=== PATIENT | female | born 1945 | race Caucasian/White ===

== ENCOUNTER → 2025-08-24 14:21 | Outpatient (REF) | payer MEDICARE, SELFPAY | LOC: RAD 14:21 | PROVIDERS: ATTENDING PHYSICIAN Internal Medicine; FAMILY PHYSICIAN Family Medicine | DX: I48.0 Paroxysmal atrial fibrillation (principal) | CPT/HCPCS: 75572; Q9967 ==

== ENCOUNTER → 2025-10-25 11:37 | Outpatient (REF) | payer MEDICARE, OTHER, SELFPAY ==
[2025-10-25 13:19] LABS: Hematocrit 36.2 % (37.0-47.0); Hemoglobin 12.4 g/dL (12.0-16.0); Mean Corp Hgb Conc. 34.3 g/dL (33.0-37.0); Mean Corpuscular Volume 96.8 fL (81.0-99.0); Nucleated Red Blood Cells % 0 %; Platelet Count 308 10^3/uL (130-400); Red Cell Dist. Width 12.0 % (11.5-14.5)
[2025-10-25 13:31] LABS: INR 1.31; PT 16.4 Sec (11.4-14.6)
[2025-10-25 13:48] LABS: ALT (SGPT) 17 U/L (0-35); AST (SGOT) 23 U/L (14-36); Albumin 4.8 g/dl (3.5-5.0); Alkaline Phosphatase 90 U/L (38-126); Blood Urea Nitrogen 12 mg/dl (7-17); Calcium 9.3 mg/dl (8.4-10.2); Carbon Dioxide 27 mmol/L (22-30); Chloride 103 mmol/L (98-107); Glucose 99 mg/dl (70-99); Potassium 4.6 mmol/L (3.5-5.1); Sodium 136 mmol/L (135-145); Total Protein 8.1 g/dl (6.3-8.2); eGFR > 60.00
== END ==
LOC: SDSPAT 11:37
PROVIDERS: ATTENDING PHYSICIAN Internal Medicine Interventional Cardiology; FAMILY PHYSICIAN Family Medicine
DX: I48.0 Paroxysmal atrial fibrillation (principal)
CPT/HCPCS: 36415; 80053; 85025; 85610; 86850; 86900; 86901; 87070; 93005

== ENCOUNTER 2025-11-02 06:00 | Inpatient (IN) | payer MEDICARE, OTHER, SELFPAY ==
[2025-10-25 12:43] VITALS: BMI 26.3
[2025-11-02] VITALS (14 sets, daily range): BP systolic 113–158; BP diastolic 47–75; BMI 26.0
--- NOTE | 2025-11-02 08:57 | ITS.CL.PN ---
Planning Director - Procedure Note
Procedure
Procedure Note:
Watchman implantation report
Date: November 02, 2025
Indication: Elevated bleeding and stroke risk in the setting of atrial fibrillation
Procedure report:
Watchman device implant: López
Groin access, transseptal puncture and delineation of JOSE ANTONIO anatomy: Talamantes
After informed consent and patient safety timeout the patient was sedated under general anesthesia by the anesthesiology service. HEMANTH probe was placed demonstrating no left atrial appendage thrombus and trace pericardial effusion preprocedure and
post procedure. Under direct ultrasound guidance the right femoral vein was accessed with 1 8 [place] short sheath which was upgraded over a pigtail wire to the double curve watchman sheath. The watchman sheath was brought to the SVC/RA junction
and withdrawn more inferiorly with an inferior to mid and anterior access point on the interatrial fossa guided by HEMANTH. Utilizing the RF wire the watchman sheath was brought to the left atrium under HEMANTH guidance.
The pigtail wire was exchanged for a pigtail catheter which engaged the appendage distally and venogram demonstrating a 22 mm ostium with a small frond-like distal lobes. The most distal lobe was engaged with anterior tilt and Dr. Dawn delivered a
27 mm device with a 23 to 26% compression which met Pass criteria with an ostial location, tug test without change in device, compression as noted and venogram demonstrating occlusion. We are all in agreement that the device may criteria and the
device was deployed and sheath and catheters were withdrawn to the right atrium. Heparin was given for the duration of the procedure to achieve an ACT greater than 350 seconds. Iblbgq-iz-vlski suture to the right groin and the patient tolerated
the procedure well.
Impression: 27 mm Watchman as above
Recommendations: Oral anticoagulation as per Dr. Dawn's notes
[2025-11-02 09:43] LABS: ACT-LR - POC > 397 Seconds (116-155)
--- NOTE | 2025-11-02 09:59 | PTCARENOTE ---
Received patient from PACU after watchman placement. Right groin dressing is dry and intact with palpable pedal pulse. SB/SR on telemetry, monitoring VS per protocol. Oriented to the room and plan of care, call westbrook in reach, at the bedside.
--- NOTE | 2025-11-02 10:50 | WATCHMAN.MD ---
Watchman Implant
-
ELECTROPHYSIOLOGY/INTERVENTIONAL PROCEDURE REPORT
Date of Procedure: November 02, 2025
Referring: Dr. Za Murray
Assisting Physician: Fermin Talamantes
PROCEDURES:
1. Left atrial appendage occlusion device using 27 mm WATCHMAN FLX device
2. Ultrasound-guided right common femoral venous access
INDICATION: High [id number] warranting snf full anticoagulation but inability to do this given his bleeding risk/bleeding complication.
ACCESS: Right common femoral vein, 16Fr sheath and 9Fr. sheaths, under US guidance using micropunture kit.
Ultrasound was utilized for vascular access. The right femoral vein was visualized under ultrasound, and the vessels was patent. An image was stored permanently in the patient's medical record. Under direct ultrasound guidance, an 8 [place] Islander
sheaths was inserted into the right common femoral vein, using a micropuncture kit through a modified Seldinger technique.
HEMODYNAMICS : (mmHg)
LA Pressure: 12
PROCEDURE REPORT:
After informed consent and patient safety 'Timeout' the patient was intubated and sedated by the anesthesiology service. Under ultrasound guidance, the right femoral vein was accessed by Dr. Talamantes for transseptal puncture. Concomitant
transesophageal echocardiogram was performed by Dr. Saleem Shafer
Baseline intracardiac ultrasound demonstrated no pericardial effusion and baseline HEMANTH images revealed a trace pericardial effusion.
After ruling out a left atrial appendage thrombus, the patient was heparinized for an ACT between 350-400 seconds and under HEMANTH and intracardiac ultrasound guidance transseptal puncture was performed by Dr. Rama Dawn using the Bookmate VersaCross
trans-septal system in a mid position on the inferior-superior axis and a mid position on the anterior-posterior axis.
Once transseptal puncture was performed over the Patterson Versacross pigtail 0.035 wire, which was parked in the body of left atrial appendage, the MitoProd access double curve sheath was advanced over this into the left atrium. A 5 [place] Islander pigtail
catheter was placed into the left atrial appendage and an appendage gram was performed using intravenous contrast dye demonstrating an anatomy that was suitable likely for a 27mm WATCHMAN FLX device.
After appropriately prepping the device, Dr. Rama Dawn successfully deployed a 27 mm WATCHMAN FLX device. Device showed excellent positioning with no leaks post device deployment. 19 to 23 % compression was noted in the device after deployment.
A 'tug-test' was performed demonstrating stability of the device. Given PASS criteria were met, the device was then released successfully by Dr. Dawn.
Post procedure, HEMANTH imaging demonstrated no new or worse pericardial effusion. Sheaths and catheters were removed from the left atrium and heparin was reversed using protamine. Catheters removed from the femoral veins with dqgnet-jy-ptgdm suture
applied. The patient tolerated the procedure well.
Closure Device: Figure of 8 suture
CONCLUSIONS
1. Successful deployment of 27 mm WATCHMAN FLX device under HEMANTH guidance.
RECOMMENDATIONS
1. Plan for daily Eliquis 5 mg twice daily for the next 3 months.
2. 3-month HEMANTH post procedure to assess stability of device and rule out any isaiah-device leaks. If no issues noted on the 3-month HEMANTH post watchman placement such as a greater than 5 mm leak, plan would be to stop anticoagulation at that point and
continue daily baby aspirin lifelong.
3. Figure of 8 suture removal prior to discharge.
Copy to: Za Murray
Rama Dawn MD, [facility], [facility]
--- NOTE | 2025-11-02 11:14 | PTCARENOTE ---
Dressing right groin is dry and intact with palpable pedal pulse. TT to speech therapy, once she is able to be upright, patient is cleared to eat/drink as per speech therapist.
--- NOTE | 2025-11-02 13:50 | PTCARENOTE ---
Sutures removed from the right groin, patient is sitting up in bed eating lunch, dressing is dry and intact.
--- NOTE | 2025-11-02 14:12 | CM ---
Chart reviewed. Patient is independent of ADLS, lives with her in a 2 STH with elevator, 2 RODY with grab bars, 0 DME. Plan is for the patient to return home. CM to follow
[2025-11-02] MEDS: TAMBOCOR 50 MG PO (16:18)
[2025-11-02] MEDS: COZAAR 50 MG PO (16:18)
--- NOTE | 2025-11-02 16:58 | PTCARENOTE ---
Patient is sitting oob in the chair waiting for dinner. Stated she had a brief episode of left sided central chest discomfort, but that it was no longer there. BP 134/60-SR on the monitor in the 70's. Dressing right groin is dry and intact. Patient
states she feels fine, just 'worries' and was glad she stayed overnight. TT to Desirae Cody NP, no further orders.
[2025-11-02] MEDS: TYLENOL 650 MG PO (17:53)
--- NOTE | 2025-11-02 18:02 | PTCARENOTE ---
Patient is sitting oob in the chair, called to tell us she was having left sided chest discomfort. Rated 4-5/10, saying it is dull. EKG done, 135/56- SR on the monitor. Pain how now subsided. TT to Dr. Dawn with patient complaints, VS and EKG
reading. Patient given PO tylenol and will continue to monitor as instructed. Patient appears relieved, comfortable at this time. Right groin dressing is dry and intact, call westbrook in reach.
[2025-11-02] MEDS: ELIQUIS 5 MG PO (20:04)
[2025-11-02] MEDS: TAMBOCOR 100 MG PO (23:03)
[2025-11-02] MEDS: ATIVAN 1 MG PO (23:03)
[2025-11-02] MEDS: CRESTOR 20 MG PO (23:03)
--- NOTE | 2025-11-03 01:46 | PTCARENOTE ---
Received pt at change of shift resting in bed. SR w/ 1st degree AVB on tele, HR 60's-70's/ pt denies any CP or SOB at this time. R groin site C/D/I, no bleeding or hematoma noted at this time. Encouraged pt to call RN w/ any questions/concerns. Call
westbrook within reach.
[2025-11-03 03:54] VITALS: BP 136/60
[2025-11-03 04:26] LABS: Hematocrit 30.3 % (37.0-47.0); Hemoglobin 10.9 g/dL (12.0-16.0); Mean Corp Hgb Conc. 36.0 g/dL (33.0-37.0); Mean Corpuscular Volume 94.4 fL (81.0-99.0); Platelet Count 227 10^3/uL (130-400); Red Cell Dist. Width 11.6 % (11.5-14.5)
[2025-11-03 04:53] LABS: Blood Urea Nitrogen 14 mg/dl (7-17); Calcium 8.5 mg/dl (8.4-10.2); Carbon Dioxide 23 mmol/L (22-30); Chloride 104 mmol/L (98-107); Estimated Creatinine Clearance 47 ml/min; Glucose 100 mg/dl (70-99); Magnesium 2.3 mg/dl (1.6-2.3); Potassium 4.2 mmol/L (3.5-5.1); Sodium 131 mmol/L (135-145); eGFR > 60.00
[2025-11-03 06:00] VITALS: BMI 26.4
[2025-11-03 07:41] VITALS: BP 128/57
[2025-11-03] MEDS: CARDIZEM CD 180 MG PO (08:34)
[2025-11-03] MEDS: ELIQUIS 5 MG PO (08:34)
[2025-11-03] MEDS: ROBITUSSIN 200 MG PO (08:34)
--- NOTE | 2025-11-03 08:35 | W.PN.CARDCBS ---
Addendum entered and electronically signed by Rama Dawn MD 11/03/25 22:16:
I saw and examined the patient.
The [employer] Front Desk Clerk's note was reviewed and I agree with the note.
Comment: s/p watchman with 27mm LAAO watchman Flx doing well. Two episodes of transient CP last night, none this AM. No SOB. No issues at groin site.
Vitals reviewed, Labs reviewed. NAD, a+Ox 3, RR, Normal S1 and S2. No m/r/g, right groin site dressed with dressing c/d/i, warm ext, no LE edema
Plans:
1. Given atypical CP post procedures, echo checked showing normal LVEF, no rWMA, trivial pericardial effusion. Nothing further to do given CP resolved
2. 3 month eliquis, then repeat HEMANTH with hopes to DC eliquis then followed up by aspiring daily
Outpt follow up with be set up
Rama Dawn MD
Addendum entered and electronically signed by CYNTHIA Bhatt 11/03/25 09:27:
ADD: because of chest pains overnight, will get limited echo this morning, rule out effusion or other issue post procedure.
Original Note:
Today's Communication / Plan
-
Continue eliquis for 3 months post watchman
HEMANTH in 3 months
Anesthesia to evaluate tooth
followup w/Dr. Dawn as scheduled
home later today
Impression / Plan
-
PCP: Trevor,
CDY: Jones Joshua MD
80 y/o, PMH PAF on chronic OAC for [id number]=8, with recurrent epistaxis requiring ENT intervention. HAS-BLED=3. Had originally been on Xarelto but stopped after multiple nose bleeds in favor of eliquis. Presented to EP lab yesterday, s/p
Watchman device implant. Fleeting chest pain overnight with no acute EKG changes, self limiting and has not returned. Complained of small chip in left front tooth post procedure.
IMPRESSION:
PAF
Recurrent epistaxis
s/p Watchman device implant, 11/02/25
Chronic anemia
TIA
HTN
HLD
GERD
Double Aortic Arch
ROXANNA, CPAP intolerant
Ocular Migraines
PLAN:
Tele- NSR w/1st deg AVB, no acute changes
Groin site stable
oob ambulating
fleeting CP overnight, no EKG/tele changes, none since
Resume eliquis last evening- continue for 3 months post watchman
3 months HEMANTH arranged
Will continue flecainide, diltiazem as before
Complained of chipped left front tooth post procedure- will reach out to anesthesia to evaluate
Followup w/Dr. Dawn as scheduled
Home today
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
Subjective
Date of Service: November 03, 2025
Denies dyspnea/palps/LH/dizziness
Fleeting chest pain overnight, self limiting, has not recurred
groin site without pain
oob ambulating
complained of left front chip on tooth noted post procedure
Objective
Labs:
11/03/25 04:06
11/03/25 04:06
Labs
Hgb 10.9 g/dL (12.0-16.0) L 11/03/25 04:06
Hct 30.3 % (37.0-47.0) L 11/03/25 04:06
Plt Count 227 10^3/uL (130-400) 11/03/25 04:06
Sodium 131 mmol/L (135-145) L 11/03/25 04:06
Potassium 4.2 mmol/L (3.5-5.1) 11/03/25 04:06
BUN 14 mg/dl (7-17) 11/03/25 04:06
Creatinine 0.8 mg/dL (0.6-1.0) 11/03/25 04:06
Glucose 100 mg/dl (70-99) H 11/03/25 04:06
Vital Signs and I&O:
Vital Signs
Temp Pulse Resp BP Pulse Ox
97.3 F 59 18 128/57 97
11/03/25 07:42 11/03/25 08:00 11/03/25 07:42 11/03/25 07:41 11/03/25 07:42
Vital Signs
Temp Pulse Resp BP Pulse Ox
97.3 F 59 18 128/57 97
11/03/25 07:42 11/03/25 08:00 11/03/25 07:42 11/03/25 07:41 11/03/25 07:42
Intake & Output
11/01/25 11/02/25 11/03/25 11/04/25
06:59 06:59 06:59 06:59
Intake Total 1779
Balance 1779
Physical Exam
Physical Exam
AAOx3, MAEE 5/5
RRR S1 S2 no murmurs
CTA bilat, non labored
soft abd, + bs
right groin site without ht/bleeding, non tender
bilat extremities w/palpable distal pulses
small area uneven end of left front tooth noted
[2025-11-03] MEDS: TAMBOCOR 100 MG PO (10:30)
[2025-11-03] MEDS: TYLENOL 650 MG PO (10:30)
--- NOTE | 2025-11-03 10:33 | W.DS.TRANS ---
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
-
Discharge Instructions:
Discharge Diagnosis/Procedures Atrial fibrillation post Watchman
Diet Low Cholesterol
Driving Restrictions No driving for 24 hours
Others Tests YOUR HEMANTH IS SCHEDULED FOR 02/04/2026 WITH
NERIS AT [facility]. YOU
WILL GET A PHONE CALL FROM THE HOSPITAL WITH
INSTRUCTIONS AND TIME OF ARRIVAL.
Instructions:
Stand-Alone Forms: DC Instructions- Cath/EP Lab
Changes to Home Medications: No
Discharge Medications:
DC Medications w/original date entered in [employer]
acetaminophen 500 mg capsule 500 mg PO Q6H PRN PAIN 10/22/25
apixaban 5 mg tablet (Eliquis) 5 mg PO BID Blood Clot Prevention/Tx 10/22/25
ximkrazteh-hhzqnsaunfidk-kwnhzkvw 50 mg-300 mg-40 mg capsule (Fioricet) 1 cap PO Q8H PRN HEADACHE 10/22/25
calcium carbonate 400 mg PO QPM Supplement 10/22/25
cholecalciferol (vitamin D3) 125 mcg (5,000 unit) tablet (Vitamin D3) 125 mcg PO DAILY Supplement 10/22/25
coQ10 (ubiquinol) 200 mg capsule 200 mg PO DAILY Supplement 10/22/25
cranberry extract 500 mg tablet 500 mg PO DAILY Supplement 10/22/25
denosumab 60 mg/mL subcutaneous syringe (Prolia) 60 mg SC [id number] Osteoporosis 10/22/25
digestive enzymes (Papaya Digestive Enzyme Complex chewable tablet) 4 tab PO QPM Supplement 10/22/25
diltiazem HCl 180 mg capsule,24 hr,extended release 180 mg PO DAILY Arrhythmia 10/22/25
flecainide 100 mg tablet 100 mg PO Q12H Arrhythmia 10/22/25
flecainide 50 mg tablet 50 mg PO .@1500 Arrhythmia 10/22/25
folic acid 800 mcg tablet 0.8 mg PO DAILY Supplement 10/22/25
guaifenesin 100 mg/5 mL oral liquid 200 mg PO Q4H PRN MUCUS/CHEST CONGESTION 10/22/25
ipratropium bromide 21 mcg (0.03 %) nasal spray 2 spray intranasal BID Allergies 10/22/25
lidocaine 4 % topical patch 1 patch topical DAILY PRN PAIN 10/22/25
olmesartan 20 mg tablet 20 mg PO 1500 Blood Pressure 10/22/25
pantoprazole 40 mg tablet,delayed release 40 mg PO 1500 Gastrointestinal Issue 10/22/25
rosuvastatin 20 mg tablet 20 mg PO HS High Cholesterol 10/22/25
simethicone 250 mg capsule 250 mg PO DAILY PRN ABDOMINAL BLOATING/GAS 10/22/25
triamcinolone acetonide 0.1 % dental paste 1 applic dental DAILYPRN PRN ORAL SORES/ULCERS 10/22/25
vibegron 75 mg tablet (Gemtesa) 75 mg PO HS Urinary Issue 10/22/25
cyanocobalamin (vitamin B-12) 1,000 mcg tablet 1,000 mcg PO DAILY Supplement 10/25/25
lorazepam 1 mg tablet 1 mg PO HS Sleep 10/25/25
omega 0-zvy-wyy-fish oil 900 mg-1,400 mg capsule,delayed release 1 cap PO DAILY Supplement 11/02/25
Home Medication Changes
Pending Results: No
--- NOTE | 2025-11-03 10:40 | PTCARENOTE ---
Dressing right groin is dry and intact with strong pedal pulse palpable. No further complaints of chest discomfort. Medicated with tylenol PO for back and neck pain. Patient sent for echo, seen by Dr. Dawn and waiting for results prior to
discharge.
[2025-11-03 11:13] VITALS: BP 133/51
--- NOTE | 2025-11-03 11:37 | PTCARENOTE ---
Echo resulted and patient is ok for discharge. Reviewed discharge instructions and follow up appointments and the patient states her understanding. Patient discharged home with her [id number] to her home where her is waiting.
== END 2025-11-03 11:39 | disposition home or self-care (01) | DRG 274 ==
LOC: IVU 06:00
PROVIDERS: Internal Medicine Cardiovascular Disease; Nurse Practitioner Adult Health; ADMITTING PHYSICIAN Internal Medicine Interventional Cardiology; FAMILY PHYSICIAN Family Medicine
PROC: 02L73DK Occlusion of Left Atrial Appendage with Intraluminal Device, Percutaneous Approach (ICD-10-PCS; 2025-11-02)
PROC: B246ZZ4 Ultrasonography of Right and Left Heart, Transesophageal (ICD-10-PCS; 2025-11-02)
DX: I48.20 Chronic atrial fibrillation, unspecified (principal); Z00.6 Encounter for examination for normal comparison and control in clinical research program; Q25.45 Double aortic arch; R04.0 Epistaxis; I10 Essential (primary) hypertension; E78.5 Hyperlipidemia, unspecified; I25.10 Atherosclerotic heart disease of native coronary artery without angina pectoris; G47.33 Obstructive sleep apnea (adult) (pediatric); K21.9 Gastro-esophageal reflux disease without esophagitis; K44.9 Diaphragmatic hernia without obstruction or gangrene; K76.0 Fatty (change of) liver, not elsewhere classified; K59.09 Other constipation; M19.90 Unspecified osteoarthritis, unspecified site; N32.81 Overactive bladder; J34.2 Deviated nasal septum; F41.9 Anxiety disorder, unspecified; M81.0 Age-related osteoporosis without current pathological fracture; G47.00 Insomnia, unspecified; Z87.19 Personal history of other diseases of the digestive system; Z79.01 Long term (current) use of anticoagulants; Z85.828 Personal history of other malignant neoplasm of skin; Z98.42 Cataract extraction status, left eye; Z98.41 Cataract extraction status, right eye; Z63.6 Dependent relative needing care at home; Z91.199 Patient's noncompliance with other medical treatment and regimen due to unspecified reason; Z86.73 Personal history of transient ischemic attack (TIA), and cerebral infarction without residual deficits; Z88.1 Allergy status to other antibiotic agents; Z88.5 Allergy status to narcotic agent; Z91.018 Allergy to other foods; Z91.010 Allergy to peanuts; Z88.0 Allergy status to penicillin; Z88.8 Allergy status to other drugs, medicaments and biological substances
CPT/HCPCS: 33340; 80048; 83735; 85027; 86900; 86901; 93005; 93308; 93355; C1894